=== PATIENT | male | born 1965 | race Caucasian/White ===

== ENCOUNTER 2018-11-01 17:17 | Inpatient (IN) ==
[2018-11-01] MEDS ORDERED: MoRPHine SULFATE 4 MG/ML 1 ML CARP\\VIAL IV STA ×3 (17:58→19:38)
[2018-11-01] MEDS ORDERED: ACETAMINOPHEN 325 MG TAB PO STA (17:58)
[2018-11-01] MEDS ORDERED: ONDANSETRON INJ 2 MG/ML 2 ML VIAL IV STA (17:58)
[2018-11-01] MEDS ORDERED: SODIUM CHLORIDE 0.9% 1000ML 1,000 ML IV ONE (17:58)
--- NOTE | 2018-11-01 18:23 | XRay Report ---
XR chest 1V portable CLINICAL HISTORY: Sepsis COMPARISON STUDY: Chest radiograph October 14, 2018. FINDINGS: Lung volumes are normal. There is no pneumothorax or pleural effusion. There is no consolid ation or evidence for pulmonary edema. Cardiac size is normal. Mediastinal contours are normal. The a ppearance of the chest is unchanged. IMPRESSION: No acute cardiopulmonary findings. Electronically signed by: Guerrero Stuart M.D. 11/01/2018 6:22 PM
[2018-11-01 18:39] LABS: Basophils # (auto) 0.03 K/uL (0-0.2); Basophils % (auto) 0.2 %; Eosinophils # (auto) 0.23 K/uL (0-0.5); Eosinophils % (auto) 1.6 %; Hematocrit (blood only) 40.4 % (42-52); Hemoglobin 13.7 g/dL (14.0-18.0); Immature Granulocytes # (auto) 0.05 K/uL (0.00-0.02); Immature Granulocytes % (auto) 0.3 %; Lymphocytes # (auto) 3.86 K/uL (1.2-3.4); Lymphocytes % (auto) 26.1 %; Mean Corpuscular Hgb Conc 33.9 g/dL (32-36); Mean Corpuscular Volume 89.2 fL (80-100); Mean Platelet Volume 9.1 fL (7.4-10.4); Monocytes # (auto) 1.53 K/uL (0.11-0.59); Monocytes % (auto) 10.4 %; Neutrophils # (auto) 9.08 K/uL (1.4-6.5); Neutrophils % (auto) 61.4 %; Platelet Count 238 K/uL (130-400); RDW Coefficient of Variation 12.8 % (11.5-14.5); RDW Standard Deviation 41.4 fL (36.4-46.3); Red Blood Count 4.53 M/uL (4.7-6.1); White Blood Count 14.78 K/uL (4.8-10.8)
--- NOTE | 2018-11-01 18:43 | Emergency Department Note ---
Entered by David Stuart acting as a scribe for Madi Jeff MD History of Present Illness General Chief complaint: Leg Injury/Pain Stated complaint: SURGERY THURS,CRAMPS L THIGH AND PAINFUL Time Seen by Provider: 11/01/18 17:38 Source: patient Limitations: no limitations History of Present Illness Onset (ago): day(s) (last night) Location: left (buttock) Radiation: other (down the leg) Severity: severe Pain Consistency: + constant Maximum Pain Intensity: 8 Quality: + constant Exacerbated By: + movement Associated symptoms: + denies other symptoms (falling, abdominal pain, urinary symptoms, ) and + fever/chills; no chest pain, no headaches and no shortness of breath The patient is a 53 year old male who presents to the Emergency Room with complaints of constant left buttock pain that radiates down his leg starting last night. The patient states he had laminectomy on by Dr. Loving. The patient states he was hospitalized from to Friday morning when he was discharged. He notes he thought he had a cramp in his leg last night that eventually went away. He states he got the constant pain this morning and it is 8/10 when sitting still and 10/10 with movement. The patient notes he has not had a bowel movement in a couple days but states that is normal for him. He states he took a norco 5 hours ago that did not help with the pain. The patient denies falling, chest pain, SOB, abdominal pain, urinary symptoms, headaches, taking any blood thinners, and history of blood clots. The patient notes he had a mild fever in the emergency department. He notes he wore compression socks all day. 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 Home Medications Home Medications Medication Instructions Recorded Confirmed Type gabapentin 300 mg PO TID 10/14/18 11/01/18 History amlodipine 5 mg PO DAILY 11/01/18 11/01/18 History hydrocodone-acetaminophen 1 tab PO Q6H PRN 11/01/18 11/01/18 History Allergies Allergy/AdvReac Type Severity Reaction Status Date / Time No Known Allergies Allergy Unknown Verified 11/01/18 18:56 Past Med/Surg History Medical History Lumbar back pain with radiculopathy affecting lower extremity (Chronic) History of tachycardia SVT. 2006 - had ablation Hypertension Obesity Surgical History H/O cardiac radiofrequency ablation (Chronic) Hx of knee surgery (Chronic) left Social History marital status: Current Living Situation: Significant Other current occupational status: employed current occupation: [employer] Feels Safe at Home: Yes Safety Concerns: Feels Safe At This Time Smoking Status: Never smoker Hx Alcohol Use: No Hx Substance Use: No Beliefs That Will Affect Care: None Preferred Language: Yi Communication Ability: Effective Overseamer Required: No Review of Systems See HPI for pertinent positives & negatives. and A total of 10 systems reviewed and were otherwise negative Physical Exam Vital Signs Vital Signs - 24 hr 11/01/18 17:36 11/01/18 18:18 11/01/18 18:26 Temperature 38.3 C H Temperature Source Oral Sepsis Recent Fever Within 48 Hours Yes Sepsis New/Unexplained Change in Mental Status No Sepsis Action Taken by Nursing No Action Required Pulse Rate 92 H 88 Pulse Rate [Apical] Pulse Rate [Finger] Pulse Rhythm Regular Pulse Strength Normal Respiratory Rate 20 15 Respiratory Effort / Characteristics Non-Labored Respiratory Depth Normal Blood Pressure 120/75 121/70 Blood Pressure [Left Arm] Blood Pressure Mean 90 87 Blood Pressure Mean [Left Arm] Blood Pressure Position Sitting Blood Pressure Position [Left Arm] Pulse Oximetry 95 94 96 Oxygen Delivery Method Room Air Room Air 11/01/18 18:35 11/01/18 18:41 11/01/18 18:45 Temperature Temperature Source Sepsis Recent Fever Within 48 Hours Sepsis New/Unexplained Change in Mental Status Sepsis Action Taken by Nursing Pulse Rate 95 H 94 H Pulse Rate [Apical] 94 H Pulse Rate [Finger] Pulse Rhythm Pulse Strength Respiratory Rate 14 18 Respiratory Effort / Characteristics Non-Labored Respiratory Depth Normal Blood Pressure Blood Pressure [Left Arm] 121/70 Blood Pressure Mean Blood Pressure Mean [Left Arm] 87 Blood Pressure Position Blood Pressure Position [Left Arm] Pulse Oximetry 96 97 Oxygen Delivery Method Room Air 11/01/18 19:39 11/01/18 19:40 11/01/18 19:41 Temperature Temperature Source Sepsis Recent Fever Within 48 Hours Sepsis New/Unexplained Change in Mental Status Sepsis Action Taken by Nursing Pulse Rate 92 H Pulse Rate [Apical] 92 H Pulse Rate [Finger] Pulse Rhythm Pulse Strength Respiratory Rate 15 18 Respiratory Effort / Characteristics Spontaneous Respiratory Depth Blood Pressure 120/71 Blood Pressure [Left Arm] 120/71 Blood Pressure Mean 87 Blood Pressure Mean [Left Arm] 87 Blood Pressure Position Blood Pressure Position [Left Arm] Pulse Oximetry 94 94 94 Oxygen Delivery Method Room Air 11/01/18 19:45 11/01/18 20:00 11/01/18 20:01 Temperature Temperature Source Sepsis Recent Fever Within 48 Hours Sepsis New/Unexplained Change in Mental Status Sepsis Action Taken by Nursing Pulse Rate 93 H 93 H 93 H Pulse Rate [Apical] Pulse Rate [Finger] Pulse Rhythm Pulse Strength Respiratory Rate 18 15 17 Respiratory Effort / Characteristics Respiratory Depth Blood Pressure 122/64 Blood Pressure [Left Arm] Blood Pressure Mean 83 Blood Pressure Mean [Left Arm] Blood Pressure Position Blood Pressure Position [Left Arm] Pulse Oximetry 95 Oxygen Delivery Method 11/01/18 20:15 11/01/18 20:30 11/01/18 20:31 Temperature 37.4 C Temperature Source Sepsis Recent Fever Within 48 Hours Sepsis New/Unexplained Change in Mental Status Sepsis Action Taken by Nursing Pulse Rate 91 H 96 H 89 Pulse Rate [Apical] Pulse Rate [Finger] Pulse Rhythm Pulse Strength Respiratory Rate 11 L 17 14 Respiratory Effort / Characteristics Respiratory Depth Blood Pressure 123/77 Blood Pressure [Left Arm] Blood Pressure Mean 92 Blood Pressure Mean [Left Arm] Blood Pressure Position Blood Pressure Position [Left Arm] Pulse Oximetry Oxygen Delivery Method 11/01/18 20:45 11/01/18 21:00 11/01/18 21:01 Temperature Temperature Source Sepsis Recent Fever Within 48 Hours Sepsis New/Unexplained Change in Mental Status Sepsis Action Taken by Nursing Pulse Rate 94 H 91 H 88 Pulse Rate [Apical] Pulse Rate [Finger] Pulse Rhythm Pulse Strength Respiratory Rate 20 12 12 Respiratory Effort / Characteristics Respiratory Depth Blood Pressure 126/77 Blood Pressure [Left Arm] Blood Pressure Mean 93 Blood Pressure Mean [Left Arm] Blood Pressure Position Blood Pressure Position [Left Arm] Pulse Oximetry Oxygen Delivery Method 11/01/18 21:34 11/01/18 23:21 Temperature 36.3 C L 36.8 C Temperature Source Oral Oral Sepsis Recent Fever Within 48 Hours Sepsis New/Unexplained Change in Mental Status Sepsis Action Taken by Nursing Pulse Rate Pulse Rate [Apical] 101 H Pulse Rate [Finger] 87 Pulse Rhythm Pulse Strength Respiratory Rate 20 16 Respiratory Effort / Characteristics Respiratory Depth Normal Blood Pressure Blood Pressure [Left Arm] 181/89 H 105/67 Blood Pressure Mean Blood Pressure Mean [Left Arm] 119 79 Blood Pressure Position Blood Pressure Position [Left Arm] Lying Lying Pulse Oximetry 91 92 Oxygen Delivery Method Room Air Room Air General:Mildly uncomfortable appearing middle-age male in no acute distress. HEENT: Normal cephalic atraumatic. Pupils are equal round and reactive to light. Extraocular movements are intact. Oropharynx is pink with moist mucous membranes. No swelling of the mouth lips or tongue. Neck: Supple with a midline trachea. No meningeal signs or stiffness, no JVD or bruits. No Stridor. Chest: Clear to auscultation bilaterally. No wheezes or rhonchi. No increased work of breathing. Heart: regular rate and rhythm. Abdomen: Soft nontender, nondistended without rebound guarding or rigidity. Extremities: No cyanosis clubbing or edema. No calf tenderness or assymetry Spine/Back. Non tender to palpation. No CVA tenderness. Intact surgical dressing in lower back. No evidence of bleeding, redness, or puss drainage. Skin: Good turgor without rashes. Neurologic exam: Cranial nerves two through 12 are intact. Motor and sensation are intact and symmetrical throughout. Course 1751: Past medical records reviewed. The patient was evaluated in room A9B, and a complete history and physical examination were performed. 1844: I reevaluated the patient. He is in a lot more pain. I ordered more morphine 4 mg. 1983: I reevaluated the patient. The wound incision is intact without redness, puss, or drainage. I ordered more morphine 4 mg. 1956: I reevaluated the patient. I reviewed the patient's case with Dr. Otero. He recommended I call Dr. Loving and if I am unable to reach him call him back. 2002: I reevaluated the patient. I reviewed the patient's case with Dr. Loving. He will evaluate the patient for further management. 2024: I reevaluated the patient. I told him he is going to get admitted and he agreed. Administered Medications Hydromorphone HCl (Dilaudid) 1 mg IV Q2HWA PRN PRN Reason: Pain Stop: 11/15/18 20:12 Last Admin: 11/01/18 21:32 Dose: 1 mg Lactated Ringer's (Lr) 1,000 mls @ 100 mls/hr IV .Q10H TROY Stop: 12/01/18 21:27 Last Admin: 11/01/18 22:25 Dose: 100 mls/hr Ketorolac Tromethamine (Toradol) 30 mg IV Q6H PRN PRN Reason: Pain Last Admin: 11/01/18 22:05 Dose: 30 mg Discontinued Medications Acetaminophen (Tylenol) 650 mg PO NOW STA Stop: 11/01/18 17:59 Last Admin: 11/01/18 18:25 Dose: 650 mg Sodium Chloride (Nss 1000ml) 1,000 mls @ 999 mls/hr IV .Q1H1M ONE Stop: 11/01/18 18:58 Last Infusion: 11/01/18 19:31 Dose: 0 mls/hr Admin: 11/01/18 18:25 Dose: 999 mls/hr Morphine Sulfate (Morphine Sulfate) 4 mg IV NOW STA Stop: 11/01/18 17:59 Last Admin: 11/01/18 18:24 Dose: 4 mg Morphine Sulfate (Morphine Sulfate) 4 mg IV NOW STA Stop: 11/01/18 18:45 Last Admin: 11/01/18 18:48 Dose: 4 mg Morphine Sulfate (Morphine Sulfate) 4 mg IV NOW STA Stop: 11/01/18 19:39 Last Admin: 11/01/18 19:46 Dose: 4 mg Ondansetron HCl (Zofran) 4 mg IV NOW STA Stop: 11/01/18 17:59 Last Admin: 11/01/18 18:24 Dose: 4 mg Medical Decision Making Differential Diagnosis Differential Diagnosis includes: Post-operation complication, sepsis, UTI, DVT, pneumonia, and electrolyte or metabolic abnormality. Medical Records Attestation: I reviewed the patient's medical records. Home Medications Current Medication List: was personally reviewed by me Laboratory Data Result diagrams: 11/01/18 18:20 11/01/18 18:20 Lab Results 11/01/18 11/01/18 11/01/18 Range/Units 18:20 18:20 18:20 WBC 14.78 H (4.8-10.8) K/uL RBC 4.53 L (4.7-6.1) M/uL Hgb 13.7 L (14.0-18.0) g/dL Hct 40.4 L (42-52) % MCV 89.2 (80-100) fL MCH 30.2 (25-34) pg MCHC 33.9 (32-36) g/dL RDW Std Deviation 41.4 (36.4-46.3) fL RDW Coeff of Sherry 12.8 (11.5-14.5) % Plt Count 238 (130-400) K/uL MPV 9.1 (7.4-10.4) fL Immature Gran % (Auto) 0.3 % Neut % (Auto) 61.4 % Lymph % (Auto) 26.1 % [place] % (Auto) 10.4 % Eos % (Auto) 1.6 % Baso % (Auto) 0.2 % Immature Gran # (Auto) 0.05 H (0.00-0.02) K/uL Neut # (Auto) 9.08 H (1.4-6.5) K/uL Lymph # (Auto) 3.86 H (1.2-3.4) K/uL [place] # (Auto) 1.53 H (0.11-0.59) K/uL Eos # (Auto) 0.23 (0-0.5) K/uL Baso # (Auto) 0.03 (0-0.2) K/uL PT 9.9 (9.0-12.0) Seconds INR 1.0 (0.9-1.1) APTT 24.7 (21.0-31.0) Seconds PTT Ratio 1.0 Sodium 138 (136-145) mmol/L Potassium 4.3 (3.5-5.1) mmol/L Chloride 100 (98-107) mmol/L Carbon Dioxide 32 (21-32) mmol/L Anion Gap 6.0 (3-11) BUN 24 H (7-18) mg/dl Creatinine 1.14 (0.6-1.4) mg/dl Est Cr Clr Drug Dosing 93.0 ml/min Est GFR ( Amer) 83.4 Est GFR (Non-Af Amer) 72.0 BUN/Creatinine Ratio 20.9 H (10-20) Glucose 109 H (70-99) mg/dl Lactate (0.4-2.0) mmol/L Calcium 8.7 (8.5-10.1) mg/dl Total Bilirubin 0.5 (0.2-1) mg/dl AST 16 (15-37) U/L ALT 33 (12-78) U/L Alkaline Phosphatase 74 (45-117) U/L Total Protein 7.5 (6.4-8.2) gm/dl Albumin 3.6 (3.4-5.0) gm/dl Globulin 3.9 (2.5-4.0) gm/dl Albumin/Globulin Ratio 0.9 (0.9-2) Urine Color Urine Appearance (Clear) Urine pH (4.5-7.5) Ur Specific [place] (1.000-1.030) Urine Protein (Negative) Urine Glucose (UA) (Negative) Urine Ketones (Negative) Urine Blood (Negative) Urine Nitrite (Negative) Urine Bilirubin (Negative) Urine Urobilinogen (Negative) Ur Leukocyte Esterase (Negative) 11/01/18 11/01/18 Range/Units 18:25 20:24 WBC (4.8-10.8) K/uL RBC (4.7-6.1) M/uL Hgb (14.0-18.0) g/dL Hct (42-52) % MCV (80-100) fL MCH (25-34) pg MCHC (32-36) g/dL RDW Std Deviation (36.4-46.3) fL RDW Coeff of Sherry (11.5-14.5) % Plt Count (130-400) K/uL MPV (7.4-10.4) fL Immature Gran % (Auto) % Neut % (Auto) % Lymph % (Auto) % [place] % (Auto) % Eos % (Auto) % Baso % (Auto) % Immature Gran # (Auto) (0.00-0.02) K/uL Neut # (Auto) (1.4-6.5) K/uL Lymph # (Auto) (1.2-3.4) K/uL [place] # (Auto) (0.11-0.59) K/uL Eos # (Auto) (0-0.5) K/uL Baso # (Auto) (0-0.2) K/uL PT (9.0-12.0) Seconds INR (0.9-1.1) APTT (21.0-31.0) Seconds PTT Ratio Sodium (136-145) mmol/L Potassium (3.5-5.1) mmol/L Chloride (98-107) mmol/L Carbon Dioxide (21-32) mmol/L Anion Gap (3-11) BUN (7-18) mg/dl Creatinine (0.6-1.4) mg/dl Est Cr Clr Drug Dosing ml/min Est GFR ( Amer) Est GFR (Non-Af Amer) BUN/Creatinine Ratio (10-20) Glucose (70-99) mg/dl Lactate 1.5 (0.4-2.0) mmol/L Calcium (8.5-10.1) mg/dl Total Bilirubin (0.2-1) mg/dl AST (15-37) U/L ALT (12-78) U/L Alkaline Phosphatase (45-117) U/L Total Protein (6.4-8.2) gm/dl Albumin (3.4-5.0) gm/dl Globulin (2.5-4.0) gm/dl Albumin/Globulin Ratio (0.9-2) Urine Color Yellow Urine Appearance Clear (Clear) Urine pH 5.5 (4.5-7.5) Ur Specific [place] 1.017 (1.000-1.030) Urine Protein Negative (Negative) Urine Glucose (UA) Negative (Negative) Urine Ketones Negative (Negative) Urine Blood Negative (Negative) Urine Nitrite Negative (Negative) Urine Bilirubin Negative (Negative) Urine Urobilinogen Negative (Negative) Ur Leukocyte Esterase Negative (Negative) Imaging Data Radiologist's Impression: Radiology results as stated below per my review and the radiologist's interpretation: BILATERAL LOWER EXTREMITY VENOUS DOPPLER CLINICAL HISTORY: Left leg pain and cramping. Recent back surgery. COMPARISON STUDY: No previous studies for comparison. TECHNIQUE: Sonography of the deep venous system of the bilateral lower extremities was performed. Compression and augmentation were evaluated. FINDINGS: The bilateral common femoral, superficial femoral and popliteal veins were compressible. Augmentation was normal. Flow was shown within the deep calf vessels. IMPRESSION: No evidence of deep venous thrombus within the bilateral lower extremities. Electronically signed by: Guerrero Stuart M.D. 11/01/2018 7:32 PM XR chest 1V portable CLINICAL HISTORY: Sepsis COMPARISON STUDY: Chest radiograph October 14, 2018. FINDINGS: Lung volumes are normal. There is no pneumothorax or pleural effusion. There is no consolidation or evidence for pulmonary edema. Cardiac size is normal. Mediastinal contours are normal. The appearance of the chest is unchanged. IMPRESSION: No acute cardiopulmonary findings. Electronically signed by: Guerrero Stuart M.D. 11/01/2018 6:22 PM Blood Pressure Blood Pressure Findings: Normal blood pressure Blood Pressure Disposition: further management by hospitalist ZBIGNIEW Narrative This patient comes in as described above. He was placed in room A9. He is here for treatment and evaluation of leg pain. He is postop spinal surgery and was discharged yesterday. It hurts worse when he moves. his back to be doing okay but it hurts in the posterior thigh. He has had no numbness or weakness. He has good distal pulses. He did have a temperature 38.3 in triage and in light of this, I did a full sepsis workup on him. He was given IV morphine and IV Zofran for pain and nausea management also the ultrasound of his legs. He has no new neurologic deficits. He has some constipation but has had normal bladder function no numbness in the buttocks. The incision looks great and no evidence of infection. Chest x-ray was negative and does not suggest pneumonia urinalysis is pending. White count is mildly elevated at 14. His abdomen is benign. Ultrasound showed no evidence of DVT. I did discuss case with Dr. Loving and he is going to admit him for pain management. The patient did require multiple doses of IV morphine while in the emergency department. At this point, in regards to his fever it may be more of a postop issue. I do not find any definite source of infection but he will need to be monitored for this Dr. Loving hasalso ordered some IV antibiotics while he is in the hospital and will admit him. Impression & Plan Post-op pain, Leg pain, Status post surgery, Fever Discharge Plan Visit Data *Final* Discharge Date/Time: 11/01/18 21:12 Chief Complaint: Leg Injury/Pain Stated Complaint: SURGERY THURS,CRAMPS L THIGH AND PAINFUL ED Provider: Madi Jeff Discharge Problem: Post-op pain, Leg pain, Status post surgery, Fever Patient Disposition: Being Evaluated by Hospitalist Discharge Instructions Interventions: ED Discharge Assessment Last Done: 11/01/18 21:12 The scribe's documentation has been prepared under my direction and personally reviewed by me in its entirety. I confirm that the note above accurately reflects all work, treatment, procedures, and medical decision making performed by me.
[2018-11-01 18:50] LABS: Partial Thromboplastin Time 24.7 Seconds (21.0-31.0); Prothrombin Time 9.9 Seconds (9.0-12.0)
[2018-11-01 18:55] LABS: Albumin Level 3.6 gm/dl (3.4-5.0); BUN Creatinine Ratio 20.9 (10-20); Calcium 8.7 mg/dl (8.5-10.1); Est GFR (African American) 83.4; Potassium 4.3 mmol/L (3.5-5.1)
[2018-11-01 18:58] LABS: Albumin Globulin Ratio 0.9 (0.9-2); Bilirubin,Total 0.5 mg/dl (0.2-1); Globulin 3.9 gm/dl (2.5-4.0); Total Protein 7.5 gm/dl (6.4-8.2)
--- NOTE | 2018-11-01 19:33 | Ultrasound Report ---
BILATERAL LOWER EXTREMITY VENOUS DOPPLER CLINICAL HISTORY: Left leg pain and cramping. Recent back surgery. COMPARISON STUDY: No previous studies for comparison. TECHNIQUE: Sonography of the deep venous system of the bilateral lower extremities was performed. Co mpression and augmentation were evaluated. FINDINGS: The bilateral common femoral, superficial femoral and popliteal veins were compressible. A ugmentation was normal. Flow was shown within the deep calf vessels. IMPRESSION: No evidence of deep venous thrombus within the bilateral lower extremities. Electronically signed by: Guerrero Stuart M.D. 11/01/2018 7:32 PM
[2018-11-01] MEDS ORDERED: ONDANSETRON INJ 2 MG/ML 2 ML VIAL IV PRN (20:13)
[2018-11-01 20:40] LABS: Appearance Urine Clear (Clear); Bilirubin Urine Negative (Negative); Blood Urine Negative (Negative); Color Urine Yellow; Glucose Urine UA Negative (Negative); Ketones Urine Negative (Negative); Leukocyte Esterase Urine Negative (Negative); Nitrite Urine Negative (Negative); Protein Urine Negative (Negative); Specific Gravity Urine 1.017 (1.000-1.030); Urobilinogen Urine Negative (Negative); pH Urine 5.5 (4.5-7.5)
[2018-11-01] MEDS: HYDROmorphone INJ 1 MG/ML SYRINGE IV PRN ×2 (21:32→23:47)
[2018-11-01] MEDS ORDERED: KEFZOL SPECIAL PROCEDURE STOCK 1 GM ADDVIAL IV SCH (22:00)
[2018-11-01] MEDS: KETOROLAC 30 MG/ML VIAL IV PRN (22:05)
[2018-11-01] MEDS: LACTATED RINGER'S 1,000 ML IV SCH (22:25)
[2018-11-01] MEDS: CEFAZOLIN 2000MG 2,000 MG/15 ML SYR IV SCH (23:48)
[2018-11-02] MEDS: DEXAMETHASONE SOD PHOSPHATE 8 MG in SYRINGE 0 ML IV SCH ×5 (00:09→23:42)
[2018-11-02] MEDS: HYDROmorphone INJ 1 MG/ML SYRINGE IV PRN ×6 (02:22→21:42)
[2018-11-02] MEDS: CEFAZOLIN 2000MG 2,000 MG/15 ML SYR IV SCH ×3 (06:00→21:04)
[2018-11-02] MEDS: LACTATED RINGER'S 1,000 ML IV SCH ×2 (07:42→17:43)
--- NOTE | 2018-11-02 08:08 | XRay Report ---
LUMBAR SPINE 3 VIEWS HISTORY: Low back pain. recent surgery COMPARISON: Lumbar spine 05/20/2018. FINDINGS: There is no fracture. No subluxation. Midline skin ellen within the lower lumbar region. L5 is demonstrated to be a transitional vertebra. Posterior decompression and fusion at L4-L5 with p edicle screws and rods. The hardware appears intact. Mild disc space narrowing at L3-L4, unchanged. IMPRESSION: No fracture or subluxation within the lumbar spine. Interval posterior decompression and fusion at L4 -L5. The hardware appears intact. Electronically signed by: Jose Elias Deshpande M.D. 11/02/2018 8:07 AM
[2018-11-02] MEDS: AMLODIPINE BESYLATE 5 MG TAB PO SCH (08:38)
[2018-11-02] MEDS: GABAPENTIN 300 MG CAP PO SCH ×2 (14:47→20:59)
--- NOTE | 2018-11-02 15:10 | History and Physical Report ---
DATE OF ADMISSION: 11/01/2018 CHIEF COMPLAINT: Left lower extremity difficulty. HISTORY OF PRESENT ILLNESS: Lei is a pleasant gentleman. He is 53. He had surgery that I performed on him, approximately 5 days ago, he had an uneventful postoperative course, went home on day 2 postop, did quite well without pain. Then Friday, the 01 of November, he started developing left lower extremity difficulty and not really a radicular pattern, it is more left posterior thigh with weightbearing. He is pain free at rest. It is either combination of some femoral vein and some neuropathic issues or from the spinal cord radicular. PAST MEDICAL HISTORY: Hypertension, tachycardia, obesity. PAST SURGICAL HISTORY: Include a radiofrequency ablation, knee surgery, spine surgery. SOCIAL HISTORY: He is , works at [employer], nonsmoker, nonalcohol user. REVIEW OF SYSTEMS: He denies any blurred vision, double vision. Denies any fevers, sweats, chills, malaise. PHYSICAL EXAMINATION: GENERAL: He did present to the hospital with a slight temperature elevation that has gone down at this point in time. ABDOMEN: Soft, nontender. No apparent referred pain. No adenopathy, no vascular insult. His wound is clean, dry. There is no warmth, erythema, edema. Even with pressure, I could not duplicate any of the pain. His pain was actually on the posterior aspect of his left thigh region. NEUROLOGIC: Intact, 5/5 strength, good sensation. IMAGES: AP and lateral images of the lumbar spine demonstrates appropriate implants. No breakdown, no slippage, no back out of the spinal implants. IMPRESSION: Lumbar spine radicular component of pain possible or single extremity nerve type pain. PLAN: I am admitting him to our service. We placed him on steroids, gabapentin, Toradol. I will follow him closely. I am not planning any repeat surgery as there does appear to be a surgical issue at this point in time. Follow him very closely. If tomorrow which is the he is still having difficulty, an MRI scan of the spine will be ordered.
[2018-11-02] MEDS: KETOROLAC 30 MG/ML VIAL IV PRN ×2 (15:45→23:42)
[2018-11-03] MEDS: HYDROmorphone INJ 1 MG/ML SYRINGE IV PRN ×7 (03:31→23:33)
[2018-11-03] MEDS: LACTATED RINGER'S 1,000 ML IV SCH ×3 (03:31→23:33)
[2018-11-03] MEDS: CEFAZOLIN 2000MG 2,000 MG/15 ML SYR IV SCH ×2 (06:12→13:30)
[2018-11-03] MEDS: DEXAMETHASONE SOD PHOSPHATE 8 MG in SYRINGE 0 ML IV SCH ×4 (06:12→23:33)
[2018-11-03] MEDS: GABAPENTIN 300 MG CAP PO SCH ×3 (09:23→20:33)
[2018-11-03] MEDS: AMLODIPINE BESYLATE 5 MG TAB PO SCH (09:23)
[2018-11-03] MEDS ORDERED: GADOBUTROL 65ML VIAL IV PRN (12:51)
--- NOTE | 2018-11-03 13:10 | Magnetic Resonance Report ---
MR lumbar spine wo/w con CLINICAL HISTORY: Severe left-sided pain. History of spinal surgery with implant placement. TECHNIQUE: Sagittal and axial T1, T2 and STIR images were obtained. Images were acquired before and a fter administration of 10.5 cc of intravenous Gadavist. COMPARISON STUDY: MRI the lumbar spine dated 06/15/2018 OBSERVATIONS: The vertebral bodies and posterior elements appear intact. There is no abnormal bony signal present t o suggest a marrow replacement process. L1-2: No disc protrusions or extrusions. No evidence of spinal canal or neural foraminal compromise. L2-3: No disc protrusions or extrusions. No evidence of spinal canal or neural foraminal compromise. L3-4: No disc protrusions or extrusions. No evidence of spinal canal or neural foraminal compromise. L4-5: There are postsurgical changes of a discectomy and interbody fusion. There are L4 and L5 pedicl e screws present. There is a hematoma at the level of the laminectomy site measuring 4 x 3 x 2 cm. Th is results in moderate mass effect on the thecal sac beginning at the superior L5 level and extending to the mid L3 level. The hemorrhage could have a subdural component although accurate characterizati on of the exact space of the hemorrhage is difficult to ascertain L5-S1: No disc protrusions or extrusions. No evidence of spinal canal or neural foraminal compromise. The conus medullaris and cauda equina appear normal. There are no pathologically enhancing masses. IMPRESSION: 1. Postsurgical changes of an L4-5 discectomy and fusion 2. There is a 4 x 3 x 2 cm hematoma at the level of the laminectomy site which results in moderate ma ss effect on the thecal sac being at the superior L5 level extending to the mid L3 level. Electronically signed by: Henry Handy M.D. 11/03/2018 1:09 PM
[2018-11-03] MEDS ORDERED: POLYETHYLENE (MIRALAX) 17 GM PACK PO PRN (17:44)
[2018-11-03] MEDS ORDERED: BISACODYL 10 MG SUPP PR PRN (17:44)
[2018-11-04] MEDS: DEXAMETHASONE SOD PHOSPHATE 8 MG in SYRINGE 0 ML IV SCH ×2 (05:28→12:11)
[2018-11-04] MEDS: AMLODIPINE BESYLATE 5 MG TAB PO SCH (08:31)
[2018-11-04] MEDS: GABAPENTIN 300 MG CAP PO SCH (08:31)
[2018-11-04] MEDS: LACTATED RINGER'S 1,000 ML IV SCH (08:34)
[2018-11-04] MEDS: HYDROmorphone INJ 1 MG/ML SYRINGE IV PRN (12:10)
--- NOTE | 2018-11-05 05:54 | Discharge Summary ---
HOSPITAL COURSE: Lei was improved and stable. He was admitted with intractable back and lower extremity difficulty on 02 of November. He had a recent surgery. He developed a hematoma in the spine. He responded nicely to medication including some steroids and some Toradol. As of today, the , he was improved, stable, minimal complaints of pain. His wound was clean, dry. Afebrile. He was discharged home in improved stable condition with medications, follow up, back brace, instructions, precautions, warnings, to be very careful. I will see him back in the office for suture removal in approximately 10 days.
--- NOTE | 2018-11-05 08:35 | Coding Query ---
Your help is needed for correct coding of this account; please clarify if the patients SPINAL HEMATOMA was: ( ) expected out of the surgery ( ) unexpected complication from the surgery ( )other please specify Thank you Piedad VARGAS
--- NOTE | 2018-11-11 09:03 | Progress Note ---
DATE: 11/03/2018 The coding query was in regard to a spinal hematoma. The spinal hematoma was a little unexpected. The patient I think did too much activity at home by his own admission. I think if he would have avoided any excessive postoperative activity, he probably would have avoided the hematoma, so it is little bit between somewhat expected and a little too much activity by the patient.
== END 2018-11-04 12:30 | disposition home or self-care (01) | DRG 921 ==
LOC: 3N 17:17 → ED 17:17 → 3N 21:12